=== PATIENT | female | born 1975 | race Caucasian/White ===

== ENCOUNTER 2016-08-18 23:41 | Observation (INO) | payer MEDICAID ==
[~2016-08-18] VITALS: Ht 170.2 cm; Wt 66.8 kg
[2016-08-18 23:59] LABS: DAU SCREEN DISCLAIMER
[2016-08-19] MEDS ORDERED: TERBUTALINE 1 MG/ML, 1ML ONE (01:51)
[2016-08-19] MEDS ORDERED: LACTATED RINGERS 1,000 ML IVBOLUS ONE (02:00)
[2016-08-19] MEDS ORDERED: TERBUTALINE 1 MG/ML, 1ML SQ ONE (02:00)
== END 2016-08-19 03:30 | disposition home or self-care (01) ==
LOC: LDOP 23:41 → LDIP 08-19 → 2NE 08-19
PROVIDERS: ADMIT Obstetrics & Gynecology; ATTEND Obstetrics & Gynecology
DX: O26.893 Other specified pregnancy related conditions, third trimester (principal); R10.9 Unspecified abdominal pain; O09.513 Supervision of elderly primigravida, third trimester; O99.333 Smoking (tobacco) complicating pregnancy, third trimester; Z3A.31 31 weeks gestation of pregnancy
CPT/HCPCS: 59025; 80307; 81001; 87086; 96360; 96372; G0378; J3105; J7120

== ENCOUNTER 2016-09-24 20:11 | Outpatient (CLI) | payer MEDICAID ==
[~2016-09-24] VITALS: Ht 171.4 cm; Wt 67.2 kg
[2016-09-24 20:58] VITALS: BP 107/58
== END 2016-09-24 21:52 | disposition home or self-care (01) ==
LOC: LDOP 20:11
PROVIDERS: ATTEND Obstetrics & Gynecology
DX: O09.523 Supervision of elderly multigravida, third trimester (principal); O26.893 Other specified pregnancy related conditions, third trimester; O62.9 Abnormality of forces of labor, unspecified; O99.333 Smoking (tobacco) complicating pregnancy, third trimester; R10.9 Unspecified abdominal pain; F17.200 Nicotine dependence, unspecified, uncomplicated; Z3A.36 36 weeks gestation of pregnancy
CPT/HCPCS: 59025; 81001; 99211; G0463